=== PATIENT | male | born 1940 | race African-American/Black ===

== ENCOUNTER → 2020-07-15 | Outpatient (CLI) | payer OTHER ==
[~2020-07-15] MED LIST: ASPI-1079 PO; ATOR20TA65 PO; DONE10TA43 PO; FAMO20TA8 PO; MEMA10TA55 PO; MIRT15TA6 PO; MULT-1203 PO; PARO-41 PO; TRAM50TA3 PO
== END | disposition home or self-care (01) ==
LOC: LAB 12:02
PROVIDERS: ATTEND Surgery
DX: Z20.822 Contact with and (suspected) exposure to COVID-19 (principal)
CPT/HCPCS: 87426

== ENCOUNTER 2020-07-17 07:57 | Day surgery (SDC) | payer OTHER ==
[~2020-07-17] VITALS: Ht 172.7 cm; Wt 72.6 kg
[2020-07-17] MEDS ORDERED: LACTATED RINGERS 1,000 ML IV SCH (08:00)
[2020-07-17] MEDS ORDERED: ATOR20TA65 PO (09:56)
[2020-07-17] MEDS ORDERED: ASPI-1079 PO (09:56)
[2020-07-17] MEDS ORDERED: FAMO20TA8 PO (09:56)
[2020-07-17] MEDS ORDERED: MULT-1203 PO (09:56)
[2020-07-17] MEDS ORDERED: PARO-41 PO (09:56)
[2020-07-17] MEDS ORDERED: TRAM50TA3 PO (09:56)
[2020-07-17] MEDS ORDERED: MIRT15TA6 PO (09:56)
[2020-07-17] MEDS ORDERED: DONE10TA43 PO (09:56)
[2020-07-17] MEDS ORDERED: MEMA10TA55 PO (09:56)
[2020-07-17] MEDS ORDERED: BUPIVACAINE HCL 0.5% (5MG/ML) 50ML ONE (13:43)
[2020-07-17] MEDS ORDERED: BACITRACIN 50,000 UNITS/VIAL ONE (13:43)
[2020-07-17] MEDS ORDERED: BUPIVACAINE HCL/PF 0.5% (5MG/ML) 10ML ONE ×2 (13:49→13:50)
[2020-07-17] MEDS ORDERED: MIDAZOLAM HCL 2 MG/2 ML VIAL ONE (13:50)
[2020-07-17] MEDS ORDERED: FENTANYL CITRATE/PF 50MCG/ML 2ML VIAL ONE (13:50)
[2020-07-17] MEDS ORDERED: PROPOFOL 200MG/20ML VIAL IV ONE (13:50)
[2020-07-17] MEDS ORDERED: ONDANSETRON HCL 4MG/2ML INJ ONE (13:50)
[2020-07-17] MEDS ORDERED: CEFAZOLIN SODIUM 1000MG/VIAL ONE (13:51)
[2020-07-17] MEDS ORDERED: HYDROMORPHONE HCL/PF 2MG/ML CPJ IV PRN (14:00)
[2020-07-17] MEDS ORDERED: MORPHINE SULFATE 2 MG/ML CPJ (NOT FOR IM USE) IV PRN (14:00)
[2020-07-17] MEDS ORDERED: MEPERIDINE HCL/PF 25MG/ML CPJ IV PRN (14:00)
[2020-07-17] MEDS ORDERED: ONDANSETRON HCL 4MG/2ML INJ IV PRN (14:00)
[2020-07-17] MEDS ORDERED: SODIUM CHLORIDE 0.9% 1,000 ML IV ONE (14:00)
[2020-07-17] MEDS ORDERED: EPHEDRINE SULFATE 50MG/ML VIAL ONE (14:11)
== END 2020-07-17 16:15 | disposition home or self-care (01) ==
LOC: OR 07:57 → EDUNIT# 13:30 → OR 16:15
PROVIDERS: ATTEND Surgery
DX: R22.1 Localized swelling, mass and lump, neck (principal); D17.0 Benign lipomatous neoplasm of skin and subcutaneous tissue of head, face and neck; K21.9 Gastro-esophageal reflux disease without esophagitis; M19.90 Unspecified osteoarthritis, unspecified site; E78.5 Hyperlipidemia, unspecified; Z79.82 Long term (current) use of aspirin; Z79.899 Other long term (current) drug therapy; Z98.890 Other specified postprocedural states
CPT/HCPCS: 21555; 88304; J0690; J2250; J2405; J2704; J3010; J3490